=== PATIENT | female | born 1945 | race Caucasian/White ===

== ENCOUNTER 2023-10-16 11:30 | Inpatient (IN) | payer OTHER ==
[~2023-10-16] VITALS: Ht 162.6 cm; Wt 81.6 kg
[~2023-10-16 11:30] MED LIST: ALPHAGAN; ASA81 MG PO; ATENOLOL50 MG PO; BENTYL; CALTRATE 600 W-1 TAB PO; CEFADROXIL500 MG PO; COSOPT PF EYE1 EACH OP; DAFLONEX-XL TA1 EACH PO; FOSAMAX70 MG PO; INTESTINEX680 MG PO; LUMIGAN2.5 M1 OP; NORVASC5 MG PO; OSTERA TABLET1 EACH; PERCOCET 5/3251 TAB PO; PNEU16DI2; XARELTO10 MG PO; [UNRECOGNIZED DRUG - OTHER] PO
[2023-10-16] MEDS ORDERED: COZAAR50 MG PO (14:21)
[2023-10-16] MEDS ORDERED: FLONASE16 GM (14:23)
[2023-10-16] MEDS ORDERED: NEXIUM 24HR20 M1 PO (14:23)
[2023-10-16] MEDS ORDERED: HORIZANT300 MG PO (14:24)
[2023-10-24] MEDS ORDERED: CEFAZOLIN SODIUM 1,000 MG VIAL ONE (06:19)
[2023-10-24] MEDS ORDERED: TRANEXAMIC ACID 100MG/1ML (1000MG) AMPUL IV ONE ×3 (06:52→09:00)
[2023-10-24] MEDS ORDERED: BUPIVACAINE HCL/PF 0.25% 30ML VIAL InF ONE (06:53)
[2023-10-24] MEDS ORDERED: LIDOCAINE HCL/EPINEPHRINE 10MG/ML 1% 50ML IJ ONE (06:53)
[2023-10-24] MEDS ORDERED: KETOROLAC TROMETHAMINE 60 MG VIAL IM ONE ×2 (06:54→09:00)
[2023-10-24] MEDS ORDERED: POVIDONE-IODINE 3 EA MED..SWAB TOP ONE (07:00)
[2023-10-24] MEDS ORDERED: BUPIVACAINE HCL/PF 0.5% 30ML ML ONE (08:22)
[2023-10-24] MEDS ORDERED: CEFAZOLIN SODIUM 1,000 MG VIAL IV ONE (09:00)
[2023-10-24] MEDS ORDERED: POVIDONE-IODINE 0.75 OZ PACKET TOP ONE (09:00)
[2023-10-24] MEDS ORDERED: MORPHINE SULFATE 4 MG/ML CARTRIDGE IV ONE (09:00)
[2023-10-24] MEDS ORDERED: MORPHINE SULFATE 4 MG/ML CARTRIDGE IV PRN (09:15)
[2023-10-24] MEDS ORDERED: SODIUM CHLORIDE 0.45 % 1,000 ML IV SCH (09:15)
[2023-10-24] MEDS ORDERED: ONDANSETRON HCL 2 MG/ML VIAL IV PRN (09:15)
[2023-10-24] MEDS ORDERED: OxyCODONE HCL 5 MG TABLET (ROXICODONE) PO PRN (09:15)
[2023-10-24] MEDS ORDERED: ACETAMINOPHEN 500 MG GEL..CAP PO ONE (11:03)
[2023-10-24] MEDS ORDERED: ACETAMINOPHEN 500 MG GEL..CAP PO SCH (12:00)
[2023-10-24] MEDS ORDERED: ENALAPRILAT DIHYDRATE 1.25 MG/ML VIAL IV PRN (16:30)
[2023-10-24] MEDS ORDERED: CEFAZOLIN SODIUM 1,000 MG VIAL IV SCH (17:00)
[2023-10-24] MEDS ORDERED: GABAPENTIN 300 MG CAPSULE PO SCH (17:00)
[2023-10-25 05:19] LABS: MEAN CELL VOLUME 86.5 fL (80.00-100.00); MEAN CORPUSCULAR HEMOGLOBIN 28.7 pg (27.00-32.0); MEAN CORPUSCULAR HGB CONC 33.2 g/dl (32.0-36.0); PLATELET COUNT 167 K/uL (150-450); RED BLOOD COUNT 3.47 M/uL (4.00-6.00); RED CELL DISTRIBUTION WIDTH 14.3 % (11.5-14.5)
[2023-10-25] MEDS ORDERED: ELIQUIS2.5 MG PO (08:27)
[2023-10-25] MEDS ORDERED: TRAM1TAB98 PO (08:27)
[2023-10-25] MEDS ORDERED: DUI500 PO (08:27)
[2023-10-25] MEDS ORDERED: APIXABAN 2.5 MG TABLET PO SCH (09:00)
[2023-10-25] MEDS ORDERED: ATENOLOL 50 MG TABLET PO SCH (09:00)
[2023-10-25] MEDS ORDERED: SENNOSIDES 1 TAB TABLET PO SCH (09:00)
[2023-10-25] MEDS ORDERED: LOSARTAN POTASSIUM 50 MG TABLET PO SCH (09:00)
[2023-10-25] MEDS ORDERED: SOD FERRIC GLUC COMPLX/SUCROSE 62.5 MG/5 ML AMPUL IV SCH (15:21)
[2023-10-25] MEDS ORDERED: Cyanocobalamin/Mecobalamin 1 TAB.SL SL SCH (17:00)
[2023-10-25] MEDS ORDERED: VITAMIN B COMPLEX 1 EACH PO SCH (17:00)
[2023-10-26 05:24] LABS: HEMATOCRIT 29.4 % (36.0-45.00); HEMOGLOBIN 9.8 g/dL (12.0-15.00); MEAN CELL VOLUME 86.5 fL (80.00-100.00); MEAN CORPUSCULAR HEMOGLOBIN 28.9 pg (27.00-32.0); MEAN CORPUSCULAR HGB CONC 33.4 g/dl (32.0-36.0); PLATELET COUNT 165 K/uL (150-450); RED CELL DISTRIBUTION WIDTH 14.3 % (11.5-14.5)
[2023-10-26] MEDS ORDERED: IRON FUM,PS/FOLIC ACID/VITC/B3 1 CAP CAPSULE PO SCH (09:00)
== END 2023-10-26 14:43 | disposition home or self-care (01) | DRG 470 ==
LOC: O/R 10-24 05:29 → SURH 10-24 07:00 → SURG 10-24 10:33 → SURH 10-24 11:30 → SURG 10-26 14:43
PROVIDERS: ADMIT Orthopaedic Surgery; ATTEND Orthopaedic Surgery
PROC: 0SRD0J9 Replacement of Left Knee Joint with Synthetic Substitute, Cemented, Open Approach (ICD-10-PCS; principal; 2023-10-24 07:00)
DX: M17.12 Unilateral primary osteoarthritis, left knee (principal); M22.12 Recurrent subluxation of patella, left knee; M81.0 Age-related osteoporosis without current pathological fracture; I10 Essential (primary) hypertension